=== PATIENT | female | born 1970 | race Caucasian/White ===

== ENCOUNTER 2018-06-22 10:00 | Inpatient (IN) | payer OTHER, BC ==
[2018-06-15 13:42] VITALS: BMI 34.9
[~2018-06-22 10:00] MED LIST: CEFAZOLIN 2 GM in DEXTROSE 5%-WATER - 50 ML IVPB ONE; CELECOXIB 200 MG CAPSULE PO ONE; ROPIVICAINE 0.2%/MORPH PF/KETOROLAC - 51ML DISP.SYRINGE IA ONE; TRANEXAMIC ACID 1000 MG/10 ML VIAL IVPUSH ONE; VANCOMYCIN 1,250 MG in DEXTROSE 5%-WATER - 250 ML IVPB ONE
[2018-06-22] MEDS ORDERED: oxyCODONE HCL 10 MG SUSTAINED ACTING TABLET ONE (12:31)
[2018-06-22] MEDS ORDERED: MIDAZOLAM HCL 2 MG/2 ML SINGLE DOSE VIAL ONE (15:04)
[2018-06-22] MEDS ORDERED: BUPIVACAINE LIPOSOME/PF (EXPAREL) 266 MG/20 ML VIAL ONE (15:05)
--- NOTE | 2018-06-22 17:53 | PN ---
Progress Note (short form) - Note Progress Note: Surgical Case CANCELLED Following administration of spinal anaesthetic, patient was hypertensive in operating room. Multiple blood pressure assessments on different BP machines demonstrated >5 diastolic blood pressure readings >105mmHg. Long conversation held with the sales counselor and patient, and decision made to cancel right total knee replacement surgery. Shortly after arrival to PACU, patient's BP began to normalize. Likely 'white coat hypertension'. Pt. reports numerous personal stressors hinging on the outcome of this operation , along with discomfort experienced due to administration of spinal anaesthetic likely contributed to this BP increase. She has had numerous recent blood pressures recorded WNL: pre-operatively and during the day today. Patient is to be admitted to the hospital overnight. Cardiac enzymes will be trended, BP will be monitored, 12-lead EKG will be obtained. Patient will be evaluated by medical hospitalist team tomorrow. If patient is asymptomatic and labs and vital signs are WNL, we will plan to proceed with right total knee replacement surgery 06/24/2018. Will follow. Efra Waldrop MD (Orthopaedic Surgery).
--- NOTE | 2018-06-23 07:20 | CONSULT ---
Consultation: REQUESTING PROVIDER: Dr Waldrop CONSULT REQUEST: We have been asked to medically evaluate this patient for medical management. HISTORY OF PRESENT ILLNESS:Patient is a 48 y/o female with A past medical history of hypertension, hyperlipidemia, hepatitis C, anxiety, depression. Patient was scheduled for an electiveright total knee replacement on June 22 2018, surgery was postponed secondary to hypertension. Patient seen and examined, reports feeling anxious, requesting to go outside to smoke, patient was noted to have cigarrettes at bedside, patient denies any chest pain, headache, or shortness of breath. REVIEW OF SYSTEMS: CONSTITUTIONAL: Absent: fever, chills, diaphoresis, generalized weakness, malaise, loss of appetite, weight change HEENT: Absent: rhinorrhea, nasal congestion, throat pain, throat swelling, difficulty swallowing, mouth swelling, ear pain, eye pain, visual changes CARDIOVASCULAR: Absent: chest pain, syncope, palpitations, irregular heart rate, lightheadedness , peripheral edema RESPIRATORY: Absent: cough, shortness of breath, dyspnea with exertion, orthopnea, wheezing, stridor, hemoptysis GASTROINTESTINAL: Absent: abdominal pain, abdominal distension, nausea, vomiting, diarrhea, constipation, melena, hematochezia GENITOURINARY: Absent: dysuria, frequency, urgency, hesitancy, hematuria, flank pain, genital pain MUSCULOSKELETAL: Present: right knee pain Absent: myalgia, arthralgia, joint swelling, back pain, neck pain SKIN: Absent: rash, itching, pallor HEMATOLOGIC/IMMUNOLOGIC: Absent: easy bleeding, easy bruising, lymphadenopathy, frequent infections ENDOCRINE: Absent: unexplained weight gain, unexplained weight loss, heat intolerance, cold intolerance NEUROLOGIC: Absent: headache, focal weakness or paresthesias, dizziness, unsteady gait, seizure, mental status changes, bladder or bowel incontinence PSYCHIATRIC: Present: anxiety Absent: depression, suicidal or homicidal ideation, hallucinations. PHYSICAL EXAMINATION Vital Signs - 24 hr 06/22/18 06/22/18 06/22/18 13:05 13:16 17:25 Temperature 98.1 F 98.4 F Pulse Rate 70 65 Respiratory 16 20 Rate Blood Pressure 127/79 162/97 O2 Sat by Pulse 99 97 Oximetry (%) 06/22/18 06/22/18 06/22/18 17:30 17:35 17:40 Temperature 98.4 F 98.4 F 98.4 F Pulse Rate 61 63 64 Respiratory 16 15 14 Rate Blood Pressure 158/92 145/90 151/78 O2 Sat by Pulse 97 100 100 Oximetry (%) 06/22/18 06/22/18 06/22/18 18:00 18:30 19:00 Temperature 98.4 F 98.4 F 98.4 F Pulse Rate 58 L 63 65 Respiratory 14 18 15 Rate Blood Pressure 154/82 171/92 H 165/90 O2 Sat by Pulse 100 100 Oximetry (%) 06/22/18 06/23/18 06/23/18 21:54 00:19 01:38 Temperature 97.8 F 97.7 F Pulse Rate 69 67 Respiratory 18 18 18 Rate Blood Pressure 164/80 170/97 O2 Sat by Pulse 100 99 99 Oximetry (%) 06/23/18 06:00 Temperature 97.9 F Pulse Rate 55 L Respiratory 18 Rate Blood Pressure 157/77 O2 Sat by Pulse 100 Oximetry (%) GENERAL: Awake, alert, and fully oriented, in no acute distress. HEAD: Normal with no signs of trauma. EYES: Pupils equal, round and reactive to light, extraocular movements intact, sclera anicteric, conjunctiva clear. No lid lag. EARS, NOSE, THROAT: Ears normal, nares patent, oropharynx clear without exudates. Moist mucous membranes. NECK: Normal range of motion, supple without lymphadenopathy, JVD, or masses. LUNGS: Breath sounds equal, clear to auscultation bilaterally. No wheezes, and no crackles. No accessory muscle use. HEART: Regular rate and rhythm, normal S1 and S2 without murmur, rub or gallop. ABDOMEN: Soft, nontender, not distended, normoactive bowel sounds, no guarding, no rebound, no masses. No hepatomegaly or splenomegaly. MUSCULOSKELETAL: Normal range of motion at all joints. No bony deformities or tenderness. No CVA tenderness. UPPER EXTREMITIES: 2+ pulses, warm, well-perfused. No cyanosis. No clubbing. Cap refill <2 seconds. No peripheral edema. LOWER EXTREMITIES: 2+ pulses, warm, well-perfused. No calf tenderness. No peripheral edema. NEUROLOGICAL: Cranial nerves II-XII intact. Normal speech. Normal gait. PSYCHIATRIC: Cooperative. Good eye contact. Appropriate mood and affect. SKIN: Warm, dry, normal turgor, no rashes or lesions noted. Laboratory Results - last 24 hr 06/22/18 06/22/18 06/23/18 16:11 16:11 01:30 Creatine Kinase CK-MB (CK-2) 0.7 Troponin I < 0.03 Cancelled 06/23/18 01:30 Creatine Kinase 76 CK-MB (CK-2) Troponin I < 0.02 Active Medications Generic Name Dose Route Start Last Admin Trade Name Freq PRN Reason Stop Dose Admin Non-Formulary Medication 1 each 06/23/18 10:00 Losartan/Hydrochlorothiazide [Losartan-Hctz 100-25 Mg Tab] PO DAILY ALEXY ASSESSMENT/PLAN: 1) cardiovascular Hypertension - Patient is prescribed losartan/hydrochlorothiazide daily,She reports noncompliance with medication secondary to side effect of frequent urination after taking hydrochlorothiazide. We will restart losartan and hydrochlorothiazide continue daily as prescribed and frequent blood pressure monitoring every 4 hours - Patient reports that she was evaluated by a microbiology analyst at [facility] 2 years ago after her diagnosis of hypertension stress echo was completed which was normal as per patient - EKG sinus bradycardia, normal axis - troponin x 3 wnl 2) psych anxiety/depression - She reports that she does not take any medication for anxiety or depression Tobacco use - Lengthy conversation with the patient returning to side effects of smoking especially since she is scheduled for an elective procedure (right total knee replacement) patient referred the nicotine patch patient adamantly declines. 3) MS Right knee osteoarthritis - Patient is scheduled for elective surgery right total knee replacement tomorrow 06/24/2018, Dr Waldrop Dispo: We will continue to follow the patient. Thank you for this consultative opportunity. Visit type - Emergency Visit Emergency Visit: No - New Patient This patient is new to me today: Yes Date on this admission: 06/23/18 - Critical Care Critical Care patient: No
--- NOTE | 2018-06-23 08:59 | OP ---
DATE OF OPERATION: 06/22/2018 SURGEON: Efra Waldrop MD Surgical case canceled. Following the administration of spinal anesthesia, the patient was hypertensive in the operating room. In the operating room, multiple blood pressure assessments on different blood pressure machines demonstrated greater than 5 diastolic blood pressure readings in excess of 105 mmHg. A long conversation was held with 2 anesthesiologists and with the patient, and the decision was made to cancel the patient's electively scheduled right total knee replacement. Shortly after arrival back to the PACU, the patient's blood pressure normalized. She has likely demonstrated white coat hypertension. The patient reports numerous personal stressors hinging on the outcome of this operation, along with the discomfort she experienced due to the administration of the spinal anesthetic. This combination best explain her transient blood pressure rise. She has had numerous recent blood pressure recordings measured as within normal limits. This included her preoperative assessment and multiple blood pressure readings throughout the day today. The patient will be admitted to the hospital overnight. Cardiac enzymes will be trended, her blood pressure will be monitored, and a 12-lead EKG will be obtained. The patient will be evaluated by the hospital's medical hospitalist team tomorrow. If the patient is asymptomatic and all of her vital signs are within normal limits, we will plan to proceed with right total knee replacement surgery this Sunday, June 24, 2018. Efra Waldrop MD [id number] MTDD
--- NOTE | 2018-06-23 09:38 | EKG ---
Test Reason : Blood Pressure : / mmHG Vent. Rate : 059 BPM Atrial Rate : 059 BPM P-R Int : 172 ms QRS Dur : 094 ms QT Int : 420 ms P-R-T Axes : 047 037 037 degrees QTc Int : 415 ms POOR DATA QUALITY, INTERPRETATION MAY BE ADVERSELY AFFECTED SINUS BRADYCARDIA OTHERWISE NORMAL ECG NO PREVIOUS ECGS AVAILABLE Confirmed by LEANN GLOVER, ESME ([id number]) on 06/23/2018 9:38:32 AM Referred By: Efra Waldrop Confirmed By:ESME NORIEGA MD
[2018-06-23] MEDS: LOSARTAN 50MG/HCTZ 12.5MG 1 TAB (FP) PO SCH (09:55)
[2018-06-23] MEDS ORDERED: PATIENT'S OWN MEDICATION (NON-FORMULARY) (Losartan/Hydrochlorothiazide [Losartan-Hctz 100- PO SCH (10:00)
[2018-06-23 10:03] LABS: BASO % 0.8 % (0-2.0); EOS % 1.3 % (0-4.5); HEMATOCRIT 44.8 % (32.4-45.2); HEMOGLOBIN 14.6 GM/dl (10.7-15.3); MCH 30.1 pg (25.7-33.7); MCHC 32.5 g/dl (32.0-36.0); MEAN CELL VOLUME 92.6 fl (80-96); MEAN PLT VOLUME 9.6 fl (7.5-11.1); MONO % 9.3 % (3.8-10.2); NEUT % 60.6 % (42.8-82.8); PLATELET COUNT 320 K/MM3 (134-434); RBC 4.84 M/mm3 (3.60-5.2); RDW 13.9 % (11.6-15.6); WHITE BLOOD COUNT 7.2 K/mm3 (4.0-10.8)
[2018-06-23 10:17] LABS: ANION GAP 5 MMOL/L (8-16); BLOOD UREA NITROGEN 12 mg/dl (7-18); CALCIUM 9.2 mg/dl (8.4-10.2); CHLORIDE 105 mmol/L (98-107); CO2 28 mmol/L (22-28); CREATININE 0.7 mg/dl (0.6-1.3); GLUCOSE,RANDOM 105 mg/dl (74-106); PHOSPHOROUS 3.2 mg/dl (2.5-4.6); SODIUM 138 mmol/L (136-145)
--- NOTE | 2018-06-23 13:33 | PN ---
Physical Exam: SUBJECTIVE: OBJECTIVE: Patient is a 48 y/o female with A past medical history of hypertension, hyperlipidemia, hepatitis C, anxiety, depression. Patient was scheduled for an electiveright total knee replacement on June 22 2018, surgery was postponed secondary to hypertension Vital Signs Period Temp Pulse Resp BP Sys/Porter Pulse Ox Last 24 Hr 97.7 F-98.4 F 55-80 14-20 145-171/77-97 97-100 GENERAL: The patient is awake, alert, and fully oriented, in no acute distress. HEAD: Normal with no signs of trauma. EYES: PERRL, extraocular movements intact, sclera anicteric, conjunctiva clear. No ptosis. ENT: Ears normal, nares patent, oropharynx clear without exudates, moist mucous membranes. NECK: Trachea midline, full range of motion, supple. LUNGS: Breath sounds equal, clear to auscultation bilaterally, no wheezes, no crackles, no accessory muscle use. HEART: Regular rate and rhythm, S1, S2 without murmur, rub or gallop. ABDOMEN: Soft, nontender, nondistended, normoactive bowel sounds, no guarding, no rebound, no hepatosplenomegaly, no masses. EXTREMITIES: 2+ pulses, warm, well-perfused, no edema. NEUROLOGICAL: Cranial nerves II through XII grossly intact. Normal speech, gait not observed. PSYCH: Normal mood, normal affect. SKIN: Warm, dry, normal turgor, no rashes or lesions noted Laboratory Results - last 24 hr 06/22/18 06/22/18 06/23/18 16:11 16:11 01:30 WBC RBC Hgb Hct MCV MCH MCHC RDW Plt Count MPV Absolute Neuts (auto) Neutrophils % Lymphocytes % Monocytes % Eosinophils % Basophils % Sodium Potassium Chloride Carbon Dioxide Anion Gap BUN Creatinine Creat Clearance w eGFR Random Glucose Calcium Phosphorus Magnesium Creatine Kinase CK-MB (CK-2) 0.7 Troponin I < 0.03 Cancelled 06/23/18 06/23/18 06/23/18 01:30 09:53 09:53 WBC 7.2 RBC 4.84 Hgb 14.6 Hct 44.8 MCV 92.6 MCH 30.1 MCHC 32.5 RDW 13.9 Plt Count 320 MPV 9.6 Absolute Neuts (auto) 4.3 Neutrophils % 60.6 Lymphocytes % 28.0 Monocytes % 9.3 Eosinophils % 1.3 Basophils % 0.8 Sodium Potassium Chloride Carbon Dioxide Anion Gap BUN Creatinine Creat Clearance w eGFR Random Glucose Calcium Phosphorus Magnesium Creatine Kinase 76 CK-MB (CK-2) Troponin I < 0.02 < 0.03 06/23/18 09:53 WBC RBC Hgb Hct MCV MCH MCHC RDW Plt Count MPV Absolute Neuts (auto) Neutrophils % Lymphocytes % Monocytes % Eosinophils % Basophils % Sodium 138 Potassium 4.0 Chloride 105 Carbon Dioxide 28 Anion Gap 5 L BUN 12 Creatinine 0.7 Creat Clearance w eGFR > 60 Random Glucose 105 Calcium 9.2 Phosphorus 3.2 Magnesium 2.0 Creatine Kinase CK-MB (CK-2) Troponin I Active Medications Generic Name Dose Route Start Last Admin Trade Name Freq PRN Reason Stop Dose Admin HCTZ/Losartan Potassium 2 tab 06/23/18 10:00 06/23/18 09:55 Hyzaar - PO 2 tab DAILY ALEXY Administration ASSESSMENT/PLAN:
--- NOTE | 2018-06-24 09:44 | PN ---
Physical Exam: SUBJECTIVE: Patient seen and examined, Reports feeling anxious pending surgery today at 5 PM at [facility] for right total knee replacement, patient reports feeling constipated OBJECTIVE: Patient is a 48 y/o female with A past medical history of hypertension, hyperlipidemia, hepatitis C, anxiety, and depression, Patient was admitted to the medical surgical floor for an elective right total knee replacement Vital Signs Period Temp Pulse Resp BP Sys/Porter Pulse Ox Last 24 Hr 97.8 F-99.0 F 67-82 18-18 131-153/82-95 99-100 GENERAL: The patient is awake, alert, and fully oriented, anxious. HEAD: Normal with no signs of trauma. EYES: PERRL, extraocular movements intact, sclera anicteric, conjunctiva clear. No ptosis. ENT: Ears normal, nares patent, oropharynx clear without exudates, moist mucous membranes. NECK: Trachea midline, full range of motion, supple. LUNGS: Breath sounds equal, clear to auscultation bilaterally, no wheezes, no crackles, no accessory muscle use. HEART: Regular rate and rhythm, S1, S2 without murmur, rub or gallop. ABDOMEN: Soft, nontender, nondistended, normoactive bowel sounds, no guarding, no rebound, no hepatosplenomegaly, no masses. EXTREMITIES: 2+ pulses, warm, well-perfused, no edema. NEUROLOGICAL: Cranial nerves II through XII grossly intact. Normal speech, gait not observed. PSYCH: Normal mood, normal affect. SKIN: Warm, dry, normal turgor, no rashes or lesions noted Laboratory Results - last 24 hr 06/23/18 06/23/18 06/23/18 09:53 09:53 09:53 WBC 7.2 RBC 4.84 Hgb 14.6 Hct 44.8 MCV 92.6 MCH 30.1 MCHC 32.5 RDW 13.9 Plt Count 320 MPV 9.6 Absolute Neuts (auto) 4.3 Neutrophils % 60.6 Lymphocytes % 28.0 Monocytes % 9.3 Eosinophils % 1.3 Basophils % 0.8 Sodium Potassium Chloride Carbon Dioxide Anion Gap BUN Creatinine Creat Clearance w eGFR Random Glucose Calcium Phosphorus Magnesium Troponin I < 0.03 HIV 1&2 Antibody Screen Negative HIV P24 Antigen Negative 06/23/18 09:53 WBC RBC Hgb Hct MCV MCH MCHC RDW Plt Count MPV Absolute Neuts (auto) Neutrophils % Lymphocytes % Monocytes % Eosinophils % Basophils % Sodium 138 Potassium 4.0 Chloride 105 Carbon Dioxide 28 Anion Gap 5 L BUN 12 Creatinine 0.7 Creat Clearance w eGFR > 60 Random Glucose 105 Calcium 9.2 Phosphorus 3.2 Magnesium 2.0 Troponin I HIV 1&2 Antibody Screen HIV P24 Antigen Active Medications Generic Name Dose Route Start Last Admin Trade Name Kobiq PRN Reason Stop Dose Admin HCTZ/Losartan Potassium 2 tab 06/23/18 10:00 06/23/18 09:55 Hyzaar - PO 2 tab DAILY ALEXY Administration ASSESSMENT/PLAN: 1) cardiovascular Hypertension - Patient is prescribed losartan/hydrochlorothiazide, daily,She reports noncompliance with medication secondary to side effect of frequent urination after taking hydrochlorothiazide, continue loosartan and hydrochlorothiazide continue daily as prescribed and frequent blood pressure monitoring every 4 hours, patient does feel anxious secondary to pending surgery, anxiety is a contributing factor to her hypertension, - Patient reports that she was evaluated by a flower grader at [facility] 2 years ago after her diagnosis of hypertension stress echo was completed which was normal as per patient - EKG sinus bradycardia, normal axis - troponin x 3 wnl 2) psych anxiety/depression - She reports that she does not take any medication for anxiety or depression Tobacco use - Lengthy conversation with the patient returning to side effects of smoking especially since she is scheduled for an elective procedure (right total knee replacement) patient offerred he nicotine patch patient adamantly declines. 3) MS Right knee osteoarthritis - Patient is scheduled for elective surgery right total knee replacement today 06/24/2018, Dr Waldrop 4) gi constipation - reports small bowel movement of hard stools this AM, will order fleet enema Dispo: We will continue to follow the patient. Thank you for this consultative opportunity. Visit type - Emergency Visit Emergency Visit: No - New Patient This patient is new to me today: No - Critical Care Critical Care patient: No - Discharge Referral Referred to [facility] Med P.C.: No
[2018-06-24] MEDS: LOSARTAN 50MG/HCTZ 12.5MG 1 TAB (FP) PO SCH (10:22)
[2018-06-24] MEDS ORDERED: SODIUM PHOSPHATE/NA BIPHOS 133 ML ENEMA PR ONE (12:00)
[2018-06-24] MEDS ORDERED: MIDAZOLAM HCL 2 MG/2 ML SINGLE DOSE VIAL ONE ×3 (17:32→18:51)
[2018-06-24] MEDS ORDERED: PROPOFOL 20 ML ONE ×4 (17:35→21:41)
[2018-06-24] MEDS ORDERED: ROPIVACAINE HCL 0.5% 30ML VIAL ONE (17:48)
[2018-06-24] MEDS ORDERED: DEXAMETHASONE SOD PHOSPHATE/PF 10 MG/ML SDV ONE (17:49)
[2018-06-24] MEDS ORDERED: KETOROLAC TROMETHAMINE 30 MG/1 ML VIAL ONE (18:52)
[2018-06-24] MEDS ORDERED: MORPHINE SULFATE 10 MG/1 ML *VIAL ONE (18:53)
[2018-06-24] MEDS ORDERED: morphine SULFATE 4 MG/ML VIAL ONE (18:53)
[2018-06-24] MEDS ORDERED: EPINEPHrine/PF 1 MG/1 ML (1:1,000) AMPULE ONE (18:59)
[2018-06-24] MEDS ORDERED: BUPIVACAINE HCL/PF 0.5% (5MG/ML) 10 ML VIAL ONE (18:59)
[2018-06-24] MEDS ORDERED: BUPIVACAINE HCL/PF 0.25% (2.5MG/ML) 10 ML VIAL ONE (18:59)
[2018-06-24] MEDS ORDERED: VANCOMYCIN 1,000 MG VIAL (RESTRICTED TO ID ONLY) ONE (19:12)
[2018-06-24] MEDS ORDERED: TRANEXAMIC ACID 1000 MG/10 ML VIAL ONE (19:12)
[2018-06-24] MEDS ORDERED: ceFAZolin SODIUM 1 GM VIAL ONE ×2 (19:12→21:30)
[2018-06-24] MEDS ORDERED: ceFAZolin SODIUM 1 GM VIAL IVPB ONE (19:15)
[2018-06-24] MEDS ORDERED: VANCOMYCIN 1,000 MG VIAL (RESTRICTED TO ID ONLY) IVPB ONE (19:20)
[2018-06-24] MEDS ORDERED: KETAMINE HCL 200 MG/20 ML VIAL ONE (19:31)
[2018-06-24] MEDS ORDERED: LABETALOL HCL 5 MG/1 ML (100MG/20 ML VIAL) ONE (19:56)
[2018-06-24] MEDS ORDERED: hydrALAZINE HCL 20 MG/ML VIAL ONE (20:38)
[2018-06-24] MEDS ORDERED: BENZOIN/ALOE VERA/STORAX/TOLU 58 ML BOTTLE ONE (21:49)
--- NOTE | 2018-06-24 22:16 | PN ---
Progress Note (short form) - Note Progress Note: 48F s/p right total knee replacement POD #0. -Pain control. -DVT PPx: -Chemical: ASA 325mg PO BID x 6 weeks. -Mechanical: JAEDN's, SCD's. -Incentive spirometry. -PT/OT/Rehab, OOB. -WBAT RLE. -Antibiotics: Ancef x 2 post op doses. -f/u drain output. -f/u post-op trial of void. -Diet as tolerated. -Keep dressing clean & dry. -Care per medical hospitalist team. -f/u [facility] [place] office 07/01/2018; call for appointment; [phone]. -Will follow. Efra Waldrop MD (Orthopaedic Surgery).
[2018-06-24] MEDS ORDERED: MAG HYDROX/AL HYDROX/SIMETH 30 ML UNIT-DOSE CUP PO PRN (22:21)
[2018-06-24] MEDS ORDERED: MAGNESIUM HYDROX 2400MG/30ML ORAL SUSPENSION 30 ML CUP PO PRN (22:21)
[2018-06-24] MEDS ORDERED: ONDANSETRON 4 MG/2 ML VIAL IVPUSH PRN (22:21)
--- NOTE | 2018-06-24 22:21 | OP ---
Operative Note - Note: Operative Date: 06/24/18 Pre-Operative Diagnosis: Traumatic arthropathy right knee Operation: Right total knee replacement Findings: Tricompartment arthritis right knee Implants: [employer]. Femur - 4. Tibia - 4. Poly - 9mm, PS. Patella - 27mm, symmetric Surgeon: Efra Waldrop Enrollment Advisor: Conor Waldrop Anesthesiologist/[employer]: Jaciel Chahal Anesthesia: Spinal Specimens Removed: Bone, soft tissue Estimated Blood Loss (mls): 0 Drains & Tubes with Location: 1 x deep HemoVac Fluid Volume Replaced (mls): 2,300 Operative Report Dictated: Yes
[2018-06-24] MEDS ORDERED: LACTATED RINGERS SOLUTION 1,000 ML IV SCH (22:30)
[2018-06-24] MEDS ORDERED: ONDANSETRON 4 MG/2 ML VIAL ONE (23:21)
[2018-06-25] MEDS ORDERED: PROMETHAZINE HCL 25 MG/1 ML VIAL IVPUSH ONE (00:07)
[2018-06-25] MEDS: ASPIRIN 325 MG TABLET PO SCH ×3 (03:09→21:55)
[2018-06-25] MEDS: CEFAZOLIN 2 GM/D5W 2 GM/50 ML ML IVPB SCH ×2 (04:49→14:08)
[2018-06-25] MEDS: oxyCODONE HCL 5 MG TABLET PO PRN ×4 (04:50→21:56)
[2018-06-25 08:47] LABS: BASO % 0.1 % (0-2.0); HEMATOCRIT 41.6 % (32.4-45.2); HEMOGLOBIN 13.7 GM/dL (10.7-15.3); LYMPH % 4.1 % (8-40); MCH 30.1 pg (25.7-33.7); MEAN CELL VOLUME 91.1 fl (80-96); NEUT % 90.8 % (42.8-82.8); PLATELET COUNT 297 K/MM3 (134-434); RBC 4.56 M/mm3 (3.60-5.2); RDW 14.3 % (11.6-15.6); WHITE BLOOD COUNT 19.3 K/mm3 (4.0-10.0)
--- NOTE | 2018-06-25 09:30 | PN ---
Progress Note (short form) - Note Progress Note: Post op day#1.S/P Right TKR under spinal anesthesia with R adductor canal and slective tibial N block uneventful.Patient stable and c/o pain score of 4-5/ 10.She is on PO PRN pain medication.No any anesthesia related problem.Patient DC from the anesthesia care.
[2018-06-25] MEDS: LOSARTAN 50MG/HCTZ 12.5MG 1 TAB (FP) PO SCH (09:34)
[2018-06-25] MEDS: PANTOPRAZOLE 40 MG TABLET (FP) PO SCH (09:34)
[2018-06-25] MEDS: SENNOSIDES/DOCUSATE COMBO (SENNA PLUS) TABLET (UD) PO SCH ×2 (09:34→21:56)
[2018-06-25 10:08] LABS: GLUCOSE,RANDOM 121 mg/dL (74-106)
[2018-06-25 10:09] LABS: ANION GAP 10 MMOL/L (8-16); BLOOD UREA NITROGEN 15 mg/dL (7-18); CALCIUM 9.4 mg/dL (8.5-10.1); CHLORIDE 104 mmol/L (98-107); CO2 25 mmol/L (21-32); POTASSIUM 3.9 mmol/L (3.5-5.1); SODIUM 139 mmol/L (136-145)
--- NOTE | 2018-06-25 13:08 | PN ---
Physical Exam: SUBJECTIVE: Patient seen and examined at bedside. Daughter present. Feels overly sedated on oxycodone 10. Pain 6/10. OBJECTIVE: Vital Signs Period Temp Pulse Resp BP Sys/Porter Pulse Ox Last 24 Hr 97.7 F-98.5 F 64-96 14-20 105-150/62-93 96-100 GENERAL: The patient is awake, alert, and fully oriented, in no acute distress. Able to self position. Moving all extremities freely. LUNGS: Breath sounds equal, clear to auscultation bilaterally, no wheezes, no crackles, no accessory muscle use. HEART: Regular rate and rhythm, S1, S2 ABDOMEN: Soft, nontender, nondistended RLE: Surgical bandanges c/d/i, surgical wound not visualized; Hemovac drain dark sanguinous drainage; toes warm, well-perfused LLE: SCD, 2+ pulses, warm, well-perfused EXTREMITIES: 2+ pulses, warm, well-perfused, no edema. Laboratory Results - last 24 hr 06/25/18 06/25/18 07:09 07:09 WBC 19.3 H RBC 4.56 Hgb 13.7 Hct 41.6 MCV 91.1 MCH 30.1 MCHC 33.0 RDW 14.3 Plt Count 297 MPV 10.0 Absolute Neuts (auto) 17.6 H Neutrophils % 90.8 H Lymphocytes % 4.1 L Monocytes % 5.0 Eosinophils % 0.0 Basophils % 0.1 Nucleated RBC % 0 Sodium 139 Potassium 3.9 Chloride 104 Carbon Dioxide 25 Anion Gap 10 BUN 15 Creatinine 1.0 Creat Clearance w eGFR 58.69 Random Glucose 121 H Calcium 9.4 Phosphorus 4.0 Magnesium 2.0 Active Medications Generic Name Dose Route Start Last Admin Trade Name Freq PRN Reason Stop Dose Admin Al Hydroxide/Mg Hydroxide 30 ml 06/24/18 22:21 Mylanta Oral Suspension - PO Q4H PRN DYSPEPSIA Aspirin 325 mg 06/24/18 22:30 06/25/18 09:34 Asa - PO 325 mg BID ALEXY Administration HCTZ/Losartan Potassium 2 tab 06/23/18 10:00 06/25/18 09:34 Hyzaar - PO 2 tab DAILY ALEXY Administration Cefazolin Sodium/Dextrose 2 gm in 50 mls @ 100 mls/hr 06/25/18 05:00 04:49 Ancef 2 Gm Premixed Ivpb - IVPB 06/25/18 13:29 100 mls/hr Q8H ALEXY Administration Magnesium Hydroxide 30 ml 06/24/18 22:21 Milk Of Magnesia - PO PRN PRN CONSTIPATION Ondansetron HCl 4 mg 06/24/18 22:21 06/24/18 23:25 Zofran Injection IVPUSH 4 mg Q6H PRN Administration NAUSEA Oxycodone HCl 5 mg 06/24/18 23:03 Roxicodone - PO Q3H PRN PAIN LEVEL 1-5 Oxycodone HCl 10 mg 06/24/18 23:03 06/25/18 11:42 Roxicodone - PO 10 mg Q3H PRN Administration PAIN LEVEL 6-10 Pantoprazole Sodium 40 mg 06/25/18 10:00 06/25/18 09:34 Protonix - PO 40 mg DAILY ALEXY Administration Senna/Docusate Sodium 1 tablet 06/25/18 10:00 06/25/18 09:34 Pericolace - PO 1 tablet BID ALEXY Administration ASSESSMENT/PLAN 48 year-old female with a PMH significant for HTN, HLD, Hep C, anxiety and depression. Admitted for right total knee replacement. Tricompartment arthritis right knee x/p total knee replacement --POD #1 --oxy 5mg q6h, tylenol q6h pain --bowel regimen -Incentive spirometry. -PT/OT/Rehab, OOB. -WBAT RLE. -Antibiotics: Ancef x 2 post op doses. -f/u drain output. -voiding freely today Dispo: patient wants to be transferred back to [facility], have referred to [facility]; f/u [facility] [place] office 07/01/2018; call for appointment ; . -Will follow. Visit type - Emergency Visit Emergency Visit: Yes ED Registration Date: 06/22/18 Care time: The patient presented to the Emergency Department on the above date and was hospitalized for further evaluation of their emergent condition. - New Patient This patient is new to me today: Yes Date on this admission: 06/25/18 - Critical Care Critical Care patient: No
[2018-06-25] MEDS: ACETAMINOPHEN 325 MG TABLET (FP) PO PRN ×2 (14:48→21:57)
[2018-06-25] MEDS: traMADol HCL 50 MG TABLET PO PRN ×2 (17:03→23:30)
[2018-06-25] MEDS: POLYETHYLENE GLYCOL 3350 119 GM BTL PO SCH (17:05)
[2018-06-25] MEDS: DOCUSATE SODIUM 100 MG CAPSULE (FP) PO SCH (21:56)
[2018-06-26] MEDS: traMADol HCL 50 MG TABLET PO PRN ×3 (06:20→22:55)
[2018-06-26] MEDS: POLYETHYLENE GLYCOL 3350 119 GM BTL PO SCH ×4 (07:35→23:02)
[2018-06-26 08:40] LABS: HEMATOCRIT 36.4 % (32.4-45.2); HEMOGLOBIN 12.1 GM/dL (10.7-15.3); MCH 29.6 pg (25.7-33.7); MCHC 33.2 g/dl (32.0-36.0); MEAN CELL VOLUME 89.2 fl (80-96); MEAN PLT VOLUME 9.9 fl (7.5-11.1); PLATELET COUNT 251 K/MM3 (134-434); RBC 4.09 M/mm3 (3.60-5.2); RDW 13.9 % (11.6-15.6); WHITE BLOOD COUNT 13.4 K/mm3 (4.0-10.0)
[2018-06-26] MEDS: ASPIRIN 325 MG TABLET PO SCH ×2 (09:40→22:54)
[2018-06-26] MEDS: PANTOPRAZOLE 40 MG TABLET (FP) PO SCH (09:40)
[2018-06-26] MEDS: SENNOSIDES/DOCUSATE COMBO (SENNA PLUS) TABLET (UD) PO SCH ×2 (09:40→22:55)
[2018-06-26] MEDS: oxyCODONE HCL 5 MG TABLET PO PRN ×2 (09:40→19:23)
[2018-06-26] MEDS: LOSARTAN 50MG/HCTZ 12.5MG 1 TAB (FP) PO SCH (09:40)
[2018-06-26] MEDS: ACETAMINOPHEN 325 MG TABLET (FP) PO PRN ×2 (09:41→19:28)
--- NOTE | 2018-06-26 20:54 | PN ---
Physical Exam: SUBJECTIVE: Patient seen and examined. Pain is well-managed. Daughter present, encouraging patient to go to rehab. 14 steps to get into house. OBJECTIVE: Vital Signs Period Temp Pulse Resp BP Sys/Porter Pulse Ox Last 24 Hr 98.5 F-99.2 F 76-89 18-20 133-158/75-92 97 GENERAL: The patient is awake, alert, and fully oriented, in no acute distress. Able to self position. Moving all extremities freely. LUNGS: Breath sounds equal, clear to auscultation bilaterally, no wheezes, no crackles, no accessory muscle use. HEART: Regular rate and rhythm, S1, S2 ABDOMEN: Soft, nontender, nondistended RLE: Surgical bandanges c/d/i, surgical wound not visualized; Hemovac drain dark sanguinous drainage; toes warm, well-perfused LLE: SCD, 2+ pulses, warm, well-perfused EXTREMITIES: 2+ pulses, warm, well-perfused, no edema. Laboratory Results - last 24 hr 06/26/18 06:45 WBC 13.4 H RBC 4.09 Hgb 12.1 Hct 36.4 MCV 89.2 MCH 29.6 MCHC 33.2 RDW 13.9 Plt Count 251 MPV 9.9 Active Medications Generic Name Dose Route Start Last Admin Trade Name Freq PRN Reason Stop Dose Admin Acetaminophen 650 mg 06/25/18 13:13 06/26/18 19:28 Tylenol - PO 650 mg Q6H PRN Administration PAIN LEVEL 1-5 Al Hydroxide/Mg Hydroxide 30 ml 06/24/18 22:21 Mylanta Oral Suspension - PO Q4H PRN DYSPEPSIA Aspirin 325 mg 06/24/18 22:30 06/26/18 09:40 Asa - PO 325 mg BID ALEXY Administration Docusate Sodium 300 mg 06/25/18 22:00 06/25/18 21:56 Colace - PO 300 mg HS ALEXY Administration HCTZ/Losartan Potassium 2 tab 06/23/18 10:00 06/26/18 09:40 Hyzaar - PO 2 tab DAILY ALEXY Administration Magnesium Hydroxide 30 ml 06/24/18 22:21 Milk Of Magnesia - PO PRN PRN CONSTIPATION Ondansetron HCl 4 mg 06/24/18 22:21 06/24/18 23:25 Zofran Injection IVPUSH 4 mg Q6H PRN Administration NAUSEA Oxycodone HCl 5 mg 06/24/18 23:03 06/26/18 19:23 Roxicodone - PO 5 mg Q3H PRN Administration PAIN LEVEL 1-5 Pantoprazole Sodium 40 mg 06/25/18 10:00 06/26/18 09:40 Protonix - PO 40 mg DAILY ALEXY Administration Polyethylene Glycol 17 gm 06/25/18 13:45 06/26/18 11:29 Miralax (For Daily Use) - PO 17 grams BID ALEXY Administration Senna/Docusate Sodium 1 tablet 06/25/18 10:00 06/26/18 09:40 Pericolace - PO 1 tablet BID ALEXY Administration Tramadol HCl 50 mg 06/25/18 16:43 06/26/18 16:07 Ultram - PO 50 mg Q6H PRN Administration PAIN LEVEL 6-10 ASSESSMENT/PLAN 48 year-old female with a PMH significant for HTN, HLD, Hep C, anxiety and depression. Admitted for right total knee replacement. Tricompartment arthritis right knee s/p total knee replacement 06/24 --POD #2 --oxycodone, ultram, tylenol for pain --bowel regimen --Incentive spirometry. --PT/OT/Rehab, OOB; WBAT RLE --perioperative antibiotics complete --monitor drain output --voiding freely --ASA 325mg BID x 6 weeks Hypertension --BP stable during post-operative period --continue HCTZ/Losartan Hyperlipidemia --not on statin therapy Hepatitis C --stable Anxiety/depression --not on meds Dispo: continues to require inpatient care. Full code. Visit type - Emergency Visit Emergency Visit: No - New Patient This patient is new to me today: No - Critical Care Critical Care patient: No
[2018-06-26] MEDS: DOCUSATE SODIUM 100 MG CAPSULE (FP) PO SCH (22:54)
[2018-06-27] MEDS: oxyCODONE HCL 5 MG TABLET PO PRN ×3 (04:02→21:52)
[2018-06-27] MEDS: ACETAMINOPHEN 325 MG TABLET (FP) PO PRN ×3 (04:03→21:50)
[2018-06-27] MEDS ORDERED: INSULIN (NOVOLOG) ASPART 100 UNITS/ML 10ML VIAL ONE (08:21)
[2018-06-27] MEDS ORDERED: INSULIN (LEVEMIR) 100 UNITS/ML UNITS SQ ONE (08:21)
[2018-06-27] MEDS: PANTOPRAZOLE 40 MG TABLET (FP) PO SCH (09:21)
[2018-06-27] MEDS: ASPIRIN 325 MG TABLET PO SCH ×2 (09:21→21:49)
[2018-06-27] MEDS: SENNOSIDES/DOCUSATE COMBO (SENNA PLUS) TABLET (UD) PO SCH ×2 (09:21→21:50)
[2018-06-27] MEDS: LOSARTAN 50MG/HCTZ 12.5MG 1 TAB (FP) PO SCH (09:21)
[2018-06-27] MEDS: POLYETHYLENE GLYCOL 3350 119 GM BTL PO SCH ×2 (09:24→21:53)
--- NOTE | 2018-06-27 09:24 | OP ---
Date of Operation: 06/24/2018 Pre-Operative Diagnosis: Traumatic arthropathy right knee. Post-Operative Diagnosis: Tri-compartment arthritis right knee. Procedure Performed: Right total knee replacement. Surgeon: Efra Waldrop M.D. Tag Meter Operator: Conor Waldrop M.D. Anesthesia: Spinal, sedation, adductor canal block. Position: Supine Incision: Midline Specimens Removed: Bones, soft tissue. Estimated Blood Loss: 0 mL. Intravenous Fluid: 2.3L crystalloid. Specimens: None. Drains: 1 x deep HemoVac. Complications: None. Urine Output: None. Bacteriology: None. Transfusions: None. Closure: No. 1 and 2-0 Vicryl, 3-0 Biosyn absorbable sutures. Tourniquet Pressure: 350 mmHg. Tourniquet Time: 130 minutes. INDICATIONS: The patient is a 48-year-old female who was indicated for a right total knee replacement to facilitate improved motion and mobilization and to prevent the complications associated with a sedentary lifestyle. She had failed conservative treatment of a work-related traumatic arthropathy of her right knee. The patient was identified in the holding area by her armband. A long discussion was held with the patient, in the presence of her family, regarding the risks, benefits, and alternatives of the above-named procedure. The risks include, but are not limited to: Pain, bleeding, infection, damage to surrounding structures (including nerves, blood vessels, skin, ligaments, tendons, and bone), wound complications, failure of hardware/implants/reduction , need for further surgery, blood clots, myocardial infarction, cerebrovascular injury, pulmonary embolism, anesthesia complications, compartment syndrome, limb loss, limp, loss of function, and . Benefits were as mentioned above. Alternatives include no surgery. All questions were answered. The patient agreed to the procedure. Informed consent was obtained, witnessed, and verified. The patient's correct operative limb - that is the right lower extremity - was marked and he then received a right lower extremity adductor canal nerve block in the preoperative holding area. The patient was taken to the operating room after being seen by the anesthesia and nursing staff. PROCEDURE: The patient was brought into the operating room, transferred to the OR table, and secured with a safety strap. Consent and the operative site were again verified with the patient and nursing and anesthesia staff. Upon arrival into the operating room, the patient received 1g of intravenous vancomycin, 2g of intravenous Ancef, and 1g intravenous tranexamic acid (TXA). A time-out was then done led by , the attending surgeon. The patient was positioned with all bony prominences well padded, and a tourniquet was placed proximally on the right thigh and set to 350 mmHg. The operative limb was prepped in standard sterile fashion using betadine prep & scrub, wiped off with alcohol, DuraPrep applied, and then free draped. A time-out was again done. The limb was then exsanguinated using elevation and an Esmarch. The tourniquet was inflated, and the case began. A midline longitudinal incision was made over the right knee followed by a subvastus exposure. The infrapatellar fat pad was excised. A peripatellar neurectomy was performed using electrocautery. The patella was everted, and a free-hand cut was made using an oscillating saw blade to facilitate patellar resurfacing. With the intention of implanting a 27mm, symmetric patellar button, a drill guide was utilized to ream 3 drill holes into the cut surface of the patella. The knee was then flexed to 90 degrees and the anterior cruciate ligament (ACL) and posterior cruciate ligament (PCL) were transected using electrocautery. Throughout the case, sharp and blunt Hohmann retractors were used to provide full exposure of the knee, and also to protect the collateral ligaments, the patellar ligament, the quadriceps mechanism, and other soft tissue structures. Next, attention was turned to the proximal tibia. The tibia was subluxed anteriorly and the extra-medullary jig was assembled and placed. With alignment verified, the tibial cutting block was pinned into position and the proximal tibial cut was made using an oscillating saw. The bone cut was freed of all soft tissue attachments using electrocautery. Next, attention was turned to the distal femur. An opening reamer was used to access the medullary canal of the distal femur. This was approximately 1cm anterior to the intercondylar notch and centered of the lateral aspect of the medial femoral condyle. The intra-medullary alignment jig was then inserted, and the distal femoral cutting block was pinned into position. The distal femoral cut was then made using an oscillating saw. Using a combination of [place]'s line, the trans-epicondylar axis, and the posterior condylar axis, appropriate rotation of the distal femoral sizing block was dialed in. The size of the distal femur was measured and the 4-in-1 distal femoral cutting block was pinned into position. The anterior, anterior chamfer, posterior, and posterior chamfer cuts were then made using an oscillating saw. All bone cuts were removed. With the knee in full extension, laminar spreaders were used to facilitate excision of the medial and lateral menisci using electrocautery. With the knee in full extension and gentle traction applied to the ankle, a rectangular box could be visualized where the bone cuts had been made. With gentle impaction of the proximal tibia into the distal femur, excellent limb alignment was confirmed. A spacer block was then used to confirm symmetric space/gap balance in both full extension and in 90 degrees of flexion of the knee. The notch cutting block was pinned into place over the distal femur and the notch cuts were made using a chisel and an oscillating saw. The bone cut and soft tissue attachments were excised using electrocautery. The tibial preparation plate was then pinned into place, the trial femoral component was positioned, and a 9mm trial polyethylene liner was inserted. The knee was then taken through a full range of motion, demonstrating excellent stability and range of motion in the coronal, sagittal, and axial planes from 0 to 130 degrees of flexion. At 90 degrees of flexion, 2 lug holes were drilled via the femoral trial component into the distal femoral bone bed. The femoral trial component and polyethylene liner were then removed, and the proximal tibial preparation was completed using a drill guide, drill, and keel punch. All tibial trial components were then removed. All cut bone surfaces, soft tissues, and remaining surgically exposed structures were then thoroughly irrigated using pulse lavage. The cut bone surfaces were dried, and the interstices of the bone bed were free of blood, water, and lipid content. Final components were implanted using low viscosity cement mixed in a vacuum. Cementation was performed using a pressurized gun. The trial 9mm liner was then inserted. The knee was then placed in full extension while the cement hardened. All extraneous cement was removed. Next, the knee was taken through a full range of motion and alignment and stability in the coronal, sagittal, and rotation planes in full extension and at 90 degrees of flexion were satisfactory. The leg was straightened, and passive range of motion was demonstrated from 0 to 130 degrees of knee flexion. The knee was thoroughly irrigated once again after removal of the trial polyethylene insert. The final polyethylene liner was then inserted. Once again, the knee was taken through a full range of motion and alignment and stability in the coronal, sagittal, and rotation planes in full extension and at 90 degrees of flexion were satisfactory. The leg was straightened, and passive range of motion was demonstrated from 0 to 130 degrees of knee flexion. Final components utilized: Wade Triathlon Femur - size #4. Tibia - size #4. Polyethylene liner - 9mm, PS (posterior stabilized). Patella - 27mm, symmetric. Once again, the wounds were copiously irrigated. Although hemostasis assured, the decision was made to use a drain due to diffuse residual drainage from cut surfaces of bone and surrounding soft tissues. The wounds were closed primarily using No. 1 and 2-0 Vicryl sutures, and the skin was eventually closed using 3-0 Biosyn in intracuticular running fashion. Next, the skin surface was cleaned using saline-soaked lap pads and then dried using dry lap pads. Benzoin and Steri-Strips as well as a JumpStart dressing were applied over the wounds, and Webril as well as Ruben wraps were placed from the foot all the way up to the thigh with a compressive, sterile dressing. Another 1g of Ancef and 1g TXA were administered intravenously. The tourniquet was then released at a final time of 130 minutes, and hemostasis was achieved using electrocautery. The sponge and needle counts were correct at the end of the case, and I, the attending surgeon, was present and scrubbed throughout the case. The patient was then transferred to the hospital bed and then to the recovery room in stable condition having tolerated this procedure well. MD ADRIAN Boone/[id number] MTDD
--- NOTE | 2018-06-27 09:25 | OP ---
DATE OF OPERATION: 06/24/2018 PREOPERATIVE DIAGNOSIS: Traumatic arthropathy of right knee. POSTOPERATIVE DIAGNOSIS: Tricompartmental arthritis, right knee. SURGERY PERFORMED: Right total knee replacement via subvastus approach. IMPLANTS USED: Wade Triathlon femur size 4, tibia size 4, polyethylene liner 9 mm posterior-stabilized (PS), patella 27 mm symmetric. SURGEON: Efra Waldrop MD CAFETERIA CLERK: Conor Waldrpo MD ANESTHESIOLOGIST: Jaciel Chahal MD ANESTHESIA: Spinal and sedation with adductor canal block. SPECIMENS REMOVED: Bone and soft tissue. ESTIMATED BLOOD LOSS: Zero milliliters, as the case was done under tourniquet. TOURNIQUET PRESSURE: 350 mmHg. TOURNIQUET TIME: 130 minutes. DRAINS/TUBES: One deep Hemovac. FLUID VOLUME REPLACED: 2.3 L crystalloid. Efra Waldrop MD DS/[id number]
--- NOTE | 2018-06-27 09:30 | DS ---
Physical Exam: SUBJECTIVE: Patient seen and examined OBJECTIVE: Vital Signs Period Temp Pulse Resp BP Sys/Porter Pulse Ox Last 24 Hr 98.3 F-99.2 F 82-89 18-20 132-157/77-90 PHYSICAL EXAM GENERAL: The patient is awake, alert, and fully oriented, in no acute distress. HEAD: Normal with no signs of trauma. EYES: PERRL, extraocular movements intact, sclera anicteric, conjunctiva clear. ENT: Ears normal, nares patent, oropharynx clear without exudates, moist mucous membranes. NECK: Trachea midline, full range of motion, supple. LUNGS: Breath sounds equal, clear to auscultation bilaterally, no wheezes, no crackles, no accessory muscle use. HEART: Regular rate and rhythm, S1, S2 without murmur, rub or gallop. ABDOMEN: Soft, nontender, nondistended, normoactive bowel sounds, no guarding, no rebound, no hepatosplenomegaly, no masses. EXTREMITIES: 2+ pulses, warm, well-perfused, no edema. NEUROLOGICAL: Cranial nerves II through XII grossly intact. Normal speech, gait not observed. PSYCH: Normal mood, normal affect. SKIN: Warm, dry, normal turgor, no rashes or lesions noted. LABS HOSPITAL COURSE: Date of Admission:06/22/18 Date of Discharge: 06/27/18 Minutes to complete discharge: 35 Discharge Summary Reason For Visit: TRAUMATIC ARTHROPATHY, RIGHT KNEE Condition: Improved - Instructions Diet, Activity, Other Instructions: Dr. Waldrop Discharge Instructions for Knee Replacement Post Operative Instructions Physical activity Physical Therapist will come to your home for the first 5 days. You will be set up with outpatient PT at your first post-operative visit. Use assistive devices for ambulation at all times. Weight bearing as tolerated on your surgical side. Do not put pillow under knee. May put pillow under heel. Wound care Leave your surgical dressing in place. Do not change the dressing until seen by your surgeon in the office. No baths or showers. Do not submerge your incision. Do not apply any ointments or lotions to your incision. Please call the office if your dressing is soiled/dirty or is falling off. Apply Graduated Compression Stockings (TEDS) to both lower extremities - remove daily for hygiene ONLY. Diet There are no dietary restrictions. Eat healthy, high-fiber foods. Drink 6 to 8 glasses of liquid each day. This will assist in keeping your bowels are regular. Pain management Any pain prescription medication ordered should be taken as prescribed for moderate to severe pain. Do not take additional Tylenol while taking Percocet. Take Aspirin 81 mg two times a day for a total of 6 weeks to prevent blood clots. Call Dr. Waldrop for any of the following: Severe pain not relieved by medication Fever of 101 or higher Excessive bleeding or drainage on dressing Inability to urinate If you experience chest pain or shortness of breath, please seek emergency care immediately. Please call the office at to confirm your post-op appointment for the week following surgery. Referrals: Efra Waldrop MD [Staff Physician] - Disposition: SNF FACILITY - Home Medications Comprehensive Discharge Medication List: Ambulatory Orders Losartan/Hydrochlorothiazide [Losartan-Hctz 100-25 mg Tab] 1 each PO DAILY 06/15 Aspirin [ASA -] 325 mg PO BID tablet 06/27/18 This patient is new to me today: No Emergency Visit: No Critical Care patient: No - Discharge Referral Referred to [facility] Med P.C.: No
[2018-06-27] MEDS: traMADol HCL 50 MG TABLET PO PRN ×2 (11:43→19:30)
--- NOTE | 2018-06-27 11:48 | PN ---
Progress Note (short form) - Note Progress Note: 48F s/p RIGHT total knee replacement POD #3. Pain well controlled. No acute events overnight. Pt. denies overnight history of headaches, chest pain, shortness of breath, nausea, vomiting, chills, & sweats. (+) Voiding; (+) Flatus; (-) BM. Tolerating diet. (+) Walked in hallway. All labs and vitals reviewed. PE: AAO x 3, NAD. R-Knee: Dressing C/D/I. NVI distally. Drain intact & in place; 120cc output/24 hrs. A/P: 48F s/p RIGHT total knee replacement POD #3. -Pain control. -DVT PPx: -Chemical: ASA 325mg PO BID x 6 weeks. -Mechanical: JADEN's, SCD's. -f/u drain output. -Incentive spirometry q15 min. -PT/OT/Rehab, OOB. -WBAT RLE. -Diet as tolerated. -Care per medical hospitalist team. -Discharge planning; f/u [facility] [place] office 07/08/2018; call for appointment; . -Will follow. Efra Waldrop MD (Orthopaedic Surgery).
--- NOTE | 2018-06-27 15:49 | PROC ---
Procedure Note Procedure: POD #3 s/p RLE TKR Hemovac drain removed with distal tip intact. Excess serous fluid removed by having patient cycle her RLE at the knee a few times. +2 edema (expected) Steri strips applied to close ostium. Dry dressing applied. Patient tolerated procedure well.
--- NOTE | 2018-06-27 18:04 | PN ---
Physical Exam: SUBJECTIVE: Patient seen and examined. Ambulating with walker in hallway. Brisk , steady gait. OBJECTIVE: Vital Signs Period Temp Pulse Resp BP Sys/Porter Pulse Ox Last 24 Hr 98.3 F-98.8 F 82-96 16-20 128-146/60-90 GENERAL: The patient is awake, alert, and fully oriented, in no acute distress. Able to self position. Moving all extremities freely. LUNGS: Breath sounds equal, clear to auscultation bilaterally, no wheezes, no crackles, no accessory muscle use. HEART: Regular rate and rhythm, S1, S2 ABDOMEN: Soft, nontender, nondistended RLE: Surgical bandanges c/d/i, surgical wound not visualized; Hemovac drain dark sanguinous drainage; toes warm, well-perfused LLE: SCD, 2+ pulses, warm, well-perfused EXTREMITIES: 2+ pulses, warm, well-perfused, no edema. Active Medications Generic Name Dose Route Start Last Admin Trade Name Freq PRN Reason Stop Dose Admin Acetaminophen 650 mg 06/25/18 13:13 06/27/18 11:42 Tylenol - PO 650 mg Q6H PRN Administration PAIN LEVEL 1-5 Al Hydroxide/Mg Hydroxide 30 ml 06/24/18 22:21 Mylanta Oral Suspension - PO Q4H PRN DYSPEPSIA Aspirin 325 mg 06/24/18 22:30 06/27/18 09:21 Asa - PO 325 mg BID ALEXY Administration Docusate Sodium 300 mg 06/25/18 22:00 06/26/18 22:54 Colace - PO 300 mg HS ALEXY Administration HCTZ/Losartan Potassium 2 tab 06/23/18 10:00 06/27/18 09:21 Hyzaar - PO 2 tab DAILY ALEXY Administration Magnesium Hydroxide 30 ml 06/24/18 22:21 Milk Of Magnesia - PO PRN PRN CONSTIPATION Ondansetron HCl 4 mg 06/24/18 22:21 06/24/18 23:25 Zofran Injection IVPUSH 4 mg Q6H PRN Administration NAUSEA Oxycodone HCl 5 mg 06/24/18 23:03 06/27/18 08:33 Roxicodone - PO 5 mg Q3H PRN Administration PAIN LEVEL 1-5 Pantoprazole Sodium 40 mg 06/25/18 10:00 06/27/18 09:21 Protonix - PO 40 mg DAILY ALEXY Administration Polyethylene Glycol 17 gm 06/25/18 13:45 06/27/18 09:24 Miralax (For Daily Use) - PO Not Given BID ALEXY Senna/Docusate Sodium 1 tablet 06/25/18 10:00 06/27/18 09:21 Pericolace - PO 1 tablet BID ALEXY Administration Tramadol HCl 50 mg 06/25/18 16:43 06/27/18 11:43 Ultram - PO 50 mg Q6H PRN Administration PAIN LEVEL 6-10 ASSESSMENT/PLAN: 48 year-old female with a PMH significant for HTN, HLD, Hep C, anxiety and depression. Admitted for right total knee replacement. Tricompartment arthritis right knee s/p total knee replacement 06/24 --POD #3 --oxycodone, ultram, tylenol for pain --bowel regimen --Incentive spirometry. --PT/OT/Rehab, OOB; WBAT RLE --perioperative antibiotics complete --monitor drain output; drain has to be pulled by surgery --voiding freely --ASA 325mg BID x 6 weeks Hypertension --BP stable during post-operative period --continue HCTZ/Losartan Hyperlipidemia --not on statin therapy Hepatitis C --stable Anxiety/depression --not on meds Dispo: continues to require inpatient care. Spoke with ORALIA Mac yesterday and ORALIA cAe today advising them patient wants to go to SNF near her home in [place]. She has 14 steps to climb to get into her house. Full code. Visit type - Emergency Visit Emergency Visit: No - New Patient This patient is new to me today: No - Critical Care Critical Care patient: No
[2018-06-27] MEDS: DOCUSATE SODIUM 100 MG CAPSULE (FP) PO SCH (21:50)
[2018-06-28] MEDS: traMADol HCL 50 MG TABLET PO PRN ×3 (06:49→23:59)
--- NOTE | 2018-06-28 08:36 | PN ---
Progress Note (short form) - Note Progress Note: 48yo F s/p Left knee replacement POD 4. Pt seen and examined at bedside. Pt states that knee pain is improved and that she has been ambulating. Pt denies fever, chills, n/v. Drain was removed yesterday without incident. Last Vital Signs Temp Pulse Resp BP Pulse Ox 99.3 F 82 20 131/62 99 06/28/18 07:00 06/28/18 07:00 06/28/18 07:00 06/28/18 07:00 06/27/18 21:00 CBC, BMP 06/26/18 06:45 06/25/18 07:09 PE: Gen: A&O x 3 Resp: breathing comfortably Ext: LLE shows dressing in place with no erythema or discharge, mild swelling, no weakness or numbness. Problem List - Problems (1) S/P total knee replacement Assessment/Plan: A/P: 48F s/p RIGHT total knee replacement POD #4. -Pain control. -DVT PPx: -Chemical: ASA 325mg PO BID x 6 weeks. -Mechanical: JADEN's, SCD's. -Incentive spirometry q15 min. -PT/OT/Rehab, OOB. -WBAT RLE. -Diet as tolerated. -Care per medical hospitalist team. -Discharge planning; f/u [facility] [place] office 07/08/2018; call for appointment; . Code(s): Z96.659 - PRESENCE OF UNSPECIFIED ARTIFICIAL KNEE JOINT
--- NOTE | 2018-06-28 09:50 | PN ---
Physical Exam: SUBJECTIVE: Patient seen and examined at the bedside. pain controlled, feels well. wants to try going up stairs with PT. constipated, colace, senna, miralax not working. will try mag citrate. OBJECTIVE: discharge planning Vital Signs Period Temp Pulse Resp BP Sys/Porter Pulse Ox Last 24 Hr 98.7 F-99.3 F 82-96 18-20 131-146/60-90 99 GENERAL: The patient is awake, alert, and fully oriented, in no acute distress. HEAD: Normal with no signs of trauma. EYES: PERRL, extraocular movements intact, sclera anicteric, conjunctiva clear. No ptosis. ENT: Ears normal, nares patent, oropharynx clear without exudates, moist mucous membranes. RIGHT LOWER EXT: surigical dressings CDI. able to move lower ext. NECK: Trachea midline, full range of motion, supple. LUNGS: Breath sounds equal, clear to auscultation bilaterally, no wheezes, no crackles, no accessory muscle use. HEART: Regular rate and rhythm PSYCH: Normal mood, normal affect. SKIN: right tkr 06/24 Active Medications Generic Name Dose Route Start Last Admin Trade Name Freq PRN Reason Stop Dose Admin Acetaminophen 650 mg 06/25/18 13:13 06/27/18 21:50 Tylenol - PO 650 mg Q6H PRN Administration PAIN LEVEL 1-5 Al Hydroxide/Mg Hydroxide 30 ml 06/24/18 22:21 Mylanta Oral Suspension - PO Q4H PRN DYSPEPSIA Aspirin 325 mg 06/24/18 22:30 06/27/18 21:49 Asa - PO 325 mg BID ALEXY Administration Docusate Sodium 300 mg 06/25/18 22:00 06/27/18 21:50 Colace - PO 300 mg HS ALEXY Administration HCTZ/Losartan Potassium 2 tab 06/23/18 10:00 06/27/18 09:21 Hyzaar - PO 2 tab DAILY ALEXY Administration Magnesium Hydroxide 30 ml 06/24/18 22:21 Milk Of Magnesia - PO PRN PRN CONSTIPATION Ondansetron HCl 4 mg 06/24/18 22:21 06/24/18 23:25 Zofran Injection IVPUSH 4 mg Q6H PRN Administration NAUSEA Pantoprazole Sodium 40 mg 06/25/18 10:00 06/27/18 09:21 Protonix - PO 40 mg DAILY ALEXY Administration Polyethylene Glycol 17 gm 06/25/18 13:45 06/27/18 21:53 Miralax (For Daily Use) - PO 17 grams BID ALEXY Administration Senna/Docusate Sodium 1 tablet 06/25/18 10:00 06/27/18 21:50 Pericolace - PO 1 tablet BID ALEXY Administration Tramadol HCl 50 mg 06/25/18 16:43 06/28/18 06:49 Ultram - PO 50 mg Q6H PRN Administration PAIN LEVEL 6-10 ASSESSMENT/PLAN: Patient is a 48 year old female with a pmhx of hypertension, hyperlipidemia, anxiety/depression, hep C. 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 Right knee surgery POD #4 Pain controlled with tramadol 5mg q6. Tolerating physical therapy. Currently waiting for insurance auth for inpt rehab close to home ([place]) vs. going home - so long as she can climb down home stairs. PT consulted for stair/gait training. weight bearing as tolerating on RLE. Surgical drain pulled by surgery. Reports constipation x 6 days. mag citrate ordered. Hypertension, chronic Controlled on Hyzaar. HLD, chronic. not on statin therapy currently. outpatient followup with PCP. fen tolerating PO electrolytes wnl low salt diet prophy: asa 324 BID x 6 weeks. constipation: given mag citrate x 1 physical therapy incentive spirometer full code Visit type - Emergency Visit Emergency Visit: Yes ED Registration Date: 06/22/18 Care time: The patient presented to the Emergency Department on the above date and was hospitalized for further evaluation of their emergent condition. - New Patient This patient is new to me today: Yes Date on this admission: 06/28/18 - Critical Care Critical Care patient: No - Discharge Referral Referred to [facility] Med P.C.: No
[2018-06-28] MEDS ORDERED: MAGNESIUM CITRATE 300 ML BOTTLE PO ONE (09:56)
[2018-06-28] MEDS: LOSARTAN 50MG/HCTZ 12.5MG 1 TAB (FP) PO SCH (10:51)
[2018-06-28] MEDS: SENNOSIDES/DOCUSATE COMBO (SENNA PLUS) TABLET (UD) PO SCH ×2 (10:51→21:04)
[2018-06-28] MEDS: PANTOPRAZOLE 40 MG TABLET (FP) PO SCH (10:51)
[2018-06-28] MEDS: ASPIRIN 325 MG TABLET PO SCH ×2 (10:51→21:05)
[2018-06-28] MEDS: POLYETHYLENE GLYCOL 3350 119 GM BTL PO SCH ×2 (10:52→21:04)
[2018-06-28] MEDS: DOCUSATE SODIUM 100 MG CAPSULE (FP) PO SCH (21:04)
[2018-06-29] MEDS: traMADol HCL 50 MG TABLET PO PRN ×2 (08:34→16:09)
[2018-06-29] MEDS: POLYETHYLENE GLYCOL 3350 119 GM BTL PO SCH ×2 (10:00→21:56)
[2018-06-29] MEDS: SENNOSIDES/DOCUSATE COMBO (SENNA PLUS) TABLET (UD) PO SCH ×2 (10:00→21:56)
[2018-06-29] MEDS: ASPIRIN 325 MG TABLET PO SCH ×2 (10:07→21:55)
[2018-06-29] MEDS: LOSARTAN 50MG/HCTZ 12.5MG 1 TAB (FP) PO SCH (10:07)
[2018-06-29] MEDS: PANTOPRAZOLE 40 MG TABLET (FP) PO SCH (10:07)
--- NOTE | 2018-06-29 13:27 | PN ---
Physical Exam: SUBJECTIVE: Patient seen and examined at the bedside. ambulating with walker. some discomfort of right knee but feels well otherwise. walked with PT yesterday, did stairs, but wants rehab. OBJECTIVE: Vital Signs Period Temp Pulse Resp BP Sys/Porter Pulse Ox Last 24 Hr 97.0 F-99.5 F 81-94 18-20 118-141/64-79 99-100 GENERAL: The patient is awake, alert, and fully oriented, in no acute distress. HEAD: Normal with no signs of trauma. EYES: PERRL, extraocular movements intact, sclera anicteric, conjunctiva clear. No ptosis. ENT: Ears normal, nares patent, oropharynx clear without exudates, moist mucous membranes. RIGHT LOWER EXT: surigical dressings CDI. able to move lower ext. - mild edema + pulses NECK: Trachea midline, full range of motion, supple. LUNGS: Breath sounds equal, clear to auscultation bilaterally, no wheezes, no crackles, no accessory muscle use. HEART: Regular rate and rhythm PSYCH: Normal mood, normal affect. SKIN: right tkr 06/24. mild edema after ambulation Active Medications Generic Name Dose Route Start Last Admin Trade Name Freq PRN Reason Stop Dose Admin Acetaminophen 650 mg 06/25/18 13:13 06/27/18 21:50 Tylenol - PO 650 mg Q6H PRN Administration PAIN LEVEL 1-5 Al Hydroxide/Mg Hydroxide 30 ml 06/24/18 22:21 Mylanta Oral Suspension - PO Q4H PRN DYSPEPSIA Aspirin 325 mg 06/24/18 22:30 06/29/18 10:07 Asa - PO 325 mg BID ALEXY Administration Docusate Sodium 300 mg 06/25/18 22:00 06/28/18 21:04 Colace - PO Not Given HS ALEXY HCTZ/Losartan Potassium 2 tab 06/23/18 10:00 06/29/18 10:07 Hyzaar - PO 2 tab DAILY ALEXY Administration Magnesium Hydroxide 30 ml 06/24/18 22:21 Milk Of Magnesia - PO PRN PRN CONSTIPATION Ondansetron HCl 4 mg 06/24/18 22:21 06/24/18 23:25 Zofran Injection IVPUSH 4 mg Q6H PRN Administration NAUSEA Pantoprazole Sodium 40 mg 06/25/18 10:00 06/29/18 10:07 Protonix - PO 40 mg DAILY ALEXY Administration Polyethylene Glycol 17 gm 06/25/18 13:45 06/29/18 10:00 Miralax (For Daily Use) - PO Not Given BID ALEXY Senna/Docusate Sodium 1 tablet 06/25/18 10:00 06/29/18 10:00 Pericolace - PO Not Given BID ALEXY Tramadol HCl 50 mg 06/25/18 16:43 06/29/18 08:34 Ultram - PO 50 mg Q6H PRN Administration PAIN LEVEL 6-10 ASSESSMENT/PLAN: Patient is a 48 year old female with a pmhx of hypertension, hyperlipidemia, anxiety/depression, hep C. 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 Right knee surgery POD #5 Pain controlled with tramadol 5mg q6. Tolerating physical therapy. Currently waiting for insurance auth for inpt rehab close to home ([place]) vs. going home - so long as she can climb down home stairs. PT consulted for stair/gait training, pt ambulatred w. weight bearing as tolerating on RLE. Surgical drain pulled by surgery. Hypertension, chronic Controlled on Hyzaar. HLD, chronic. not on statin therapy currently. outpatient followup with PCP. fen tolerating PO electrolytes wnl low salt diet prophy: asa 324 BID x 6 weeks. physical therapy incentive spirometer full code Visit type - Emergency Visit Emergency Visit: Yes ED Registration Date: 06/22/18 Care time: The patient presented to the Emergency Department on the above date and was hospitalized for further evaluation of their emergent condition. - New Patient This patient is new to me today: No - Critical Care Critical Care patient: No - Discharge Referral Referred to [facility] Med P.C.: No
--- NOTE | 2018-06-29 18:20 | PATH ---
Surgical Pathology Report Patient Name: DAYAMI ELIZABETH Med. Rec. #: [id number] /Age/Gender: 1970 (Age: 48) / F Account: [id number] Location: [facility] MED/SURG Taken: 06/24/2018 Received: 06/27/2018 Reported: 06/29/2018 Physicians: Efra Waldrop M.D. Specimen(s) Received BONE AND TISSUE RIGHT KNEE Clinical History Right knee osteoarthritis Final Diagnosis BONE AND TISSUE, KNEE, RIGHT, TOTAL KNEE REPLACEMENT: BONE WITH DEGENERATIVE JOINT DISEASE. FRAGMENTS OF FIBROADIPOSE TISSUE, DENSE FIBROCONNECTIVE TISSUE, AND SYNOVIUM. Electronically Signed Eli Guzman M.D. Gross Description Received in formalin labeled "bone/tissue right knee," is a 7.0 x 4.0 x 3.0 cm aggregate of multiple portions of bone and soft tissue, consistent with knee bones. There are areas of eburnation present. The remaining articular surfaces are moore-yellow and diffusely granular. The underlying trabecular bone is yellow and hard. Customer Account Representative sections are submitted in one cassette, after brief decalcification. CHIQUI/06/27/2018 christopher/06/27/2018
[2018-06-29] MEDS: ACETAMINOPHEN 325 MG TABLET (FP) PO PRN (20:06)
[2018-06-29] MEDS: DOCUSATE SODIUM 100 MG CAPSULE (FP) PO SCH (21:56)
[2018-06-30] MEDS: traMADol HCL 50 MG TABLET PO PRN ×4 (01:06→23:08)
[2018-06-30 07:04] LABS: BASO % 0.6 % (0-2.0); EOS % 1.7 % (0-4.5); HEMATOCRIT 35.1 % (32.4-45.2); HEMOGLOBIN 11.7 GM/dL (10.7-15.3); LYMPH % 22.1 % (8-40); MCH 30.1 pg (25.7-33.7); MCHC 33.3 g/dl (32.0-36.0); MEAN CELL VOLUME 90.1 fl (80-96); MEAN PLT VOLUME 8.6 fl (7.5-11.1); NEUT % 61.6 % (42.8-82.8); PLATELET COUNT 347 K/MM3 (134-434); RBC 3.89 M/mm3 (3.60-5.2); RDW 14.2 % (11.6-15.6); WHITE BLOOD COUNT 9.9 K/mm3 (4.0-10.0)
[2018-06-30 07:45] LABS: ALBUMIN 2.5 g/dl (3.4-5.0); ALK PHOS 70 U/L (45-117); ANION GAP 5 MMOL/L (8-16); BILIRUBIN,TOTAL 0.5 mg/dL (0.2-1); BLOOD UREA NITROGEN 17 mg/dL (7-18); CALCIUM 8.4 mg/dL (8.5-10.1); CHLORIDE 99 mmol/L (98-107); CO2 33 mmol/L (21-32); CREATININE 0.6 mg/dL (0.55-1.3); GLUCOSE,RANDOM 99 mg/dL (74-106); POTASSIUM 3.9 mmol/L (3.5-5.1); SGOT/AST 12 U/L (15-37); SGPT/ALT 14 U/L (13-61); SODIUM 136 mmol/L (136-145); TOT PROT 5.9 g/dl (6.4-8.2)
--- NOTE | 2018-06-30 08:28 | PN ---
Progress Note (short form) - Note Progress Note: 48F s/p RIGHT total knee replacement POD #5. Pain well controlled. No acute events overnight. Pt. denies overnight history of headaches, chest pain, shortness of breath, nausea, vomiting, chills, & sweats. (+) Voiding; (+) Flatus; (+) BM. Tolerating diet. (+) Walked in hallway. All labs and vitals reviewed. PE: AAO x 3, NAD. R-Knee: Dressing C/D/I. NVI distally. Drain removed POD #3. A/P: 48F doing well s/p RIGHT total knee replacement POD #5. -Pain control. -DVT PPx: -Chemical: ASA 325mg PO BID x 6 weeks. -Mechanical: JADEN's, SCD's. -Incentive spirometry q15 min. -PT/OT/Rehab, OOB. -WBAT RLE. -Diet as tolerated. -Care per medical hospitalist team. -Discharge planning; f/u [facility] [place] office 07/08/2018; call for appointment; . -Will follow. Efra Waldrop MD (Orthopaedic Surgery).
[2018-06-30] MEDS: PANTOPRAZOLE 40 MG TABLET (FP) PO SCH (09:18)
[2018-06-30] MEDS: POLYETHYLENE GLYCOL 3350 119 GM BTL PO SCH ×2 (09:18→22:28)
[2018-06-30] MEDS: LOSARTAN 50MG/HCTZ 12.5MG 1 TAB (FP) PO SCH (09:18)
[2018-06-30] MEDS: ASPIRIN 325 MG TABLET PO SCH ×2 (09:18→23:08)
[2018-06-30] MEDS: SENNOSIDES/DOCUSATE COMBO (SENNA PLUS) TABLET (UD) PO SCH ×2 (09:18→22:28)
[2018-06-30] MEDS: ACETAMINOPHEN 325 MG TABLET (FP) PO PRN ×2 (10:27→19:19)
--- NOTE | 2018-06-30 15:37 | PN ---
Physical Exam: SUBJECTIVE: Patient seen and examined at the bedside. feels well, ambulated better with PT today. OBJECTIVE: awaiting final decision on rehab inpatient vs home. pending insurance acceptance. sW aware. pt considering outpatient PT in a facility close to home ([place]) Vital Signs Period Temp Pulse Resp BP Sys/Porter Pulse Ox Last 24 Hr 98.2 F-99.6 F 78-87 18-20 120-154/69-90 98-98 GENERAL: The patient is awake, alert, and fully oriented, in no acute distress. HEAD: Normal with no signs of trauma. EYES: PERRL, extraocular movements intact, sclera anicteric, conjunctiva clear. No ptosis. ENT: Ears normal, nares patent, oropharynx clear without exudates, moist mucous membranes. RIGHT LOWER EXT: surigical dressings CDI. able to move lower ext. - mild edema + pulses NECK: Trachea midline, full range of motion, supple. LUNGS: Breath sounds equal, clear to auscultation bilaterally, no wheezes, no crackles, no accessory muscle use. HEART: Regular rate and rhythm PSYCH: Normal mood, normal affect. SKIN: right tkr 06/24. mild edema after ambulation Laboratory Results - last 24 hr 06/30/18 06/30/18 06:30 06:30 WBC 9.9 RBC 3.89 Hgb 11.7 Hct 35.1 MCV 90.1 MCH 30.1 MCHC 33.3 RDW 14.2 Plt Count 347 D MPV 8.6 D Absolute Neuts (auto) 6.1 Neutrophils % 61.6 D Lymphocytes % 22.1 D Monocytes % 14.0 H D Eosinophils % 1.7 D Basophils % 0.6 D Nucleated RBC % 0 Sodium 136 Potassium 3.9 Chloride 99 Carbon Dioxide 33 H Anion Gap 5 L BUN 17 Creatinine 0.6 Creat Clearance w eGFR > 60 Random Glucose 99 Calcium 8.4 L Total Bilirubin 0.5 AST 12 L ALT 14 Alkaline Phosphatase 70 Total Protein 5.9 L Albumin 2.5 L Active Medications Generic Name Dose Route Start Last Admin Trade Name Freq PRN Reason Stop Dose Admin Acetaminophen 650 mg 06/25/18 13:13 06/30/18 10:27 Tylenol - PO 650 mg Q6H PRN Administration PAIN LEVEL 1-5 Al Hydroxide/Mg Hydroxide 30 ml 09/28/18 22:21 Mylanta Oral Suspension - PO Q4H PRN DYSPEPSIA Aspirin 325 mg 06/24/18 22:30 06/30/18 09:18 Asa - PO 325 mg BID ALEXY Administration Docusate Sodium 300 mg 06/25/18 22:00 06/29/18 21:56 Colace - PO Not Given HS ALEXY HCTZ/Losartan Potassium 2 tab 06/23/18 10:00 06/30/18 09:18 Hyzaar - PO 2 tab DAILY ALEXY Administration Magnesium Hydroxide 30 ml 06/24/18 22:21 Milk Of Magnesia - PO PRN PRN CONSTIPATION Ondansetron HCl 4 mg 06/24/18 22:21 06/24/18 23:25 Zofran Injection IVPUSH 4 mg Q6H PRN Administration NAUSEA Pantoprazole Sodium 40 mg 06/25/18 10:00 06/30/18 09:18 Protonix - PO 40 mg DAILY ALEXY Administration Polyethylene Glycol 17 gm 06/25/18 13:45 06/30/18 09:18 Miralax (For Daily Use) - PO Not Given BID ALEXY Senna/Docusate Sodium 1 tablet 06/25/18 10:00 06/30/18 09:18 Pericolace - PO 1 tablet BID ALEXY Administration Tramadol HCl 50 mg 06/30/18 00:57 06/30/18 09:18 Ultram - PO 50 mg Q8H PRN Administration PAIN LEVEL 7 - 10 ASSESSMENT/PLAN: Patient is a 48 year old female with a pmhx of hypertension, hyperlipidemia, anxiety/depression, hep C. 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 Total knee replacement POD #6 Pain controlled with tramadol 5mg q6. Tolerating physical therapy. Currently waiting for insurance auth for inpt rehab close to home ([place]) vs. going home - so long as she can climb down home stairs. PT consulted for stair/gait training, pt ambulatred w. weight bearing as tolerating on RLE. Surgical drain pulled by surgery. discharge planning Hypertension, chronic Controlled on Hyzaar. HLD, chronic. not on statin therapy currently. outpatient followup with PCP. fen tolerating PO electrolytes wnl low salt diet prophy: asa 324 BID x 6 weeks. physical therapy incentive spirometer Visit type - Emergency Visit Emergency Visit: Yes ED Registration Date: 06/22/18 Care time: The patient presented to the Emergency Department on the above date and was hospitalized for further evaluation of their emergent condition. - New Patient This patient is new to me today: No - Critical Care Critical Care patient: No - Discharge Referral Referred to [facility] Med P.C.: No
[2018-06-30] MEDS ORDERED: WITCH HAZEL 50% (TUCKS) 40 PAD/JAR PAD TP PRN (19:22)
[2018-06-30] MEDS: DOCUSATE SODIUM 100 MG CAPSULE (FP) PO SCH (22:28)
[2018-07-01] MEDS ORDERED: ACETAMINOPHEN 325 MG TABLET (FP) PO ONE (00:46)
[2018-07-01] MEDS: traMADol HCL 50 MG TABLET PO PRN ×2 (06:20→14:02)
[2018-07-01] MEDS: PANTOPRAZOLE 40 MG TABLET (FP) PO SCH (10:00)
[2018-07-01] MEDS: ASPIRIN 325 MG TABLET PO SCH (10:01)
[2018-07-01] MEDS: LOSARTAN 50MG/HCTZ 12.5MG 1 TAB (FP) PO SCH (10:02)
[2018-07-01] MEDS: POLYETHYLENE GLYCOL 3350 119 GM BTL PO SCH (10:03)
[2018-07-01] MEDS: SENNOSIDES/DOCUSATE COMBO (SENNA PLUS) TABLET (UD) PO SCH (10:03)
[2018-07-01] MEDS: ACETAMINOPHEN 325 MG TABLET (FP) PO PRN ×2 (10:28→16:54)
[2018-07-01 14:47] VITALS: BP 131/102; PULSE 80; TEMP 98.6
--- NOTE | 2018-07-01 15:27 | DS ---
Physical Exam: SUBJECTIVE: Patient seen and examined OBJECTIVE: Vital Signs Period Temp Pulse Resp BP Sys/Porter Pulse Ox Last 24 Hr 98.1 F-98.6 F 75-88 16-19 118-141/67-102 98-98 PHYSICAL EXAM GENERAL: The patient is awake, alert, and fully oriented, in no acute distress. HEAD: Normal with no signs of trauma. EYES: PERRL, extraocular movements intact, sclera anicteric, conjunctiva clear. ENT: Ears normal, nares patent, oropharynx clear without exudates, moist mucous membranes. NECK: Trachea midline, full range of motion, supple. LUNGS: Breath sounds equal, clear to auscultation bilaterally, no wheezes, no crackles, no accessory muscle use. HEART: Regular rate and rhythm, S1, S2 without murmur, rub or gallop. ABDOMEN: Soft, nontender, nondistended, normoactive bowel sounds, no guarding, no rebound, no hepatosplenomegaly, no masses. EXTREMITIES: 2+ pulses, warm, well-perfused, no edema. NEUROLOGICAL: Cranial nerves II through XII grossly intact. Normal speech, gait not observed. PSYCH: Normal mood, normal affect. SKIN: Warm, dry, normal turgor, no rashes or lesions noted. LABS HOSPITAL COURSE: Date of Admission:06/22/18 Date of Discharge: 07/01/18 Discharge Summary Reason For Visit: TRAUMATIC ARTHROPATHY, RIGHT KNEE Current Active Problems S/P total knee replacement (Acute) Condition: Improved - Instructions Diet, Activity, Other Instructions: Dr. Waldrop Discharge Instructions for Knee Replacement Post Operative Instructions Physical activity Physical Therapist will come to your home for the first 5 days. You will be set up with outpatient PT at your first post-operative visit. Use assistive devices for ambulation at all times. Weight bearing as tolerated on your surgical side. Do not put pillow under knee. May put pillow under heel. Wound care Leave your surgical dressing in place. Do not change the dressing until seen by your surgeon in the office. No baths or showers. Do not submerge your incision. Do not apply any ointments or lotions to your incision. Please call the office if your dressing is soiled/dirty or is falling off. Apply Graduated Compression Stockings (TEDS) to both lower extremities - remove daily for hygiene ONLY. Diet There are no dietary restrictions. Eat healthy, high-fiber foods. Drink 6 to 8 glasses of liquid each day. This will assist in keeping your bowels are regular. Pain management Any pain prescription medication ordered should be taken as prescribed for moderate to severe pain. Do not take additional Tylenol while taking Percocet. Take Aspirin 81 mg two times a day for a total of 6 weeks to prevent blood clots. Call Dr. Waldrop for any of the following: Severe pain not relieved by medication Fever of 101 or higher Excessive bleeding or drainage on dressing Inability to urinate If you experience chest pain or shortness of breath, please seek emergency care immediately. Please call the office at to confirm your post-op appointment for the week following surgery. Referrals: Efra Waldrop MD [Staff Physician] - Disposition: HOME - Home Medications Comprehensive Discharge Medication List: Ambulatory Orders Losartan/Hydrochlorothiazide [Losartan-Hctz 100-25 mg Tab] 1 each PO DAILY 06/15 Aspirin [ASA -] 325 mg PO BID tablet 06/27/18 Aspirin [ASA -] 325 mg PO BID #90 tablet 07/01/18 Docusate Sodium [Colace] 100 mg PO DAILY #60 capsule 07/01/18 Pantoprazole Sodium [Protonix -] 40 mg PO DAILY #30 tablet.ec 07/01/18 Polyethylene Glycol 3350 [Miralax (For Daily Use) -] 17 gm PO DAILY #1 bottle traMADol HCL [Ultram -] 50 mg PO Q6H PRN #20 tablet MDD 4 07/01/18 - Discharge Referral Referred to [facility] No
== END 2018-07-01 17:18 | disposition home or self-care (01) | DRG 302 ==
LOC: FM/S 10:23 → JSAMEDAYSX 06-24 15:20 → J8W 06-25 01:29
PROVIDERS: ADMIT Orthopaedic Surgery Adult Reconstructive Orthopaedic Surgery; ATTEND Nurse Practitioner Family
PROC: 0SRC0J9 Replacement of Right Knee Joint with Synthetic Substitute, Cemented, Open Approach (ICD-10-PCS; principal; 2018-06-24 17:00)
DX: M12.561 Traumatic arthropathy, right knee (principal); I10 Essential (primary) hypertension; E78.5 Hyperlipidemia, unspecified; F41.8 Other specified anxiety disorders; Z86.19 Personal history of other infectious and parasitic diseases; M17.11 Unilateral primary osteoarthritis, right knee; K59.00 Constipation, unspecified
CPT/HCPCS: 36415; 73560-TC-RT-FY; 80048; 80053; 82550; 82553; 83735; 84100; 84484; 85025; 85027; 87389; 88305-TC; 88311-TC; 93005; 94760; 97116-GP; 97162-GP